=== PATIENT | male | born 1985 | race Two or more races ===

== ENCOUNTER 2023-10-18 12:12 | Emergency (ER) | payer OTHER ==
[~2023-10-18] VITALS: Ht 170.2 cm; Wt 60.7 kg
[2023-10-18 14:23] VITALS: BP 105/65; PULSE 58; RESP 16; TEMP 97.8; O2SAT 99
[2023-10-18] MEDS: cefTRIAXone 2GM/50ML D5W 50 ML IV ONE (14:25)
[2023-10-18] MEDS: LIDOCAINE 1% HCL (LOCAL ANESTH.) INJ 20ML MDV ID ONE (14:39)
[2023-10-18] MEDS ORDERED: BACDST PO (14:46)
[2023-10-18] MEDS ORDERED: IBUP1TAB5 PO (14:46)
[2023-10-18] MEDS ORDERED: CEPH500T PO (14:46)
[2023-10-18] MEDS: KETOROLAC TROMETH 60MG/2ML VIAL IM ONE (15:04)
[2023-10-18] MEDS: cefTRIAXone 1GM/50ML D5W 50 ML IV ONE ×2 (15:07→15:10)
== END 2023-10-18 15:41 | disposition home or self-care (01) ==
LOC: ER 12:20
DX: H66.42 Suppurative otitis media, unspecified, left ear (principal)
CPT/HCPCS: 96365; 96372; 99284; J0696; J1885